=== PATIENT | male | born 1990 | race Caucasian/White ===

== ENCOUNTER 2019-01-08 14:16 | Inpatient (IN) ==
[2019-01-08 15:03] LABS: BASO# 0.04 X1000 (0.0-0.2); BASO% 0.6 % (0.0-0.8); HEMATOCRIT 43.8 % (42.0-52.0); HEMOGLOBIN 15.2 g/dL (14.0-18.0); IMM GRAN# 0.01 X1000 (0.0-0.04); IMM GRAN% 0.1 % (0.0-0.5); LYMPH# 1.05 X1000 (1.2-3.4); LYMPH% 14.5 % (20.5-51.1); MCH 28.5 PG (27-31); MCHC 34.7 g/dL (33-37); MONO# 0.77 X1000 (0.11-0.59); MONO% 10.6 % (1.7-9.3); MPV 9.9 FL (7.4-10.4); NEUT# 5.39 X1000 (1.4-6.5); NEUT% 74.2 % (42.2-75.2); PLT 371 X1000 (130-400); RBC 5.34 XMIL (4.7-6.1); RDW 12.7 % (11.5-14.5); WBC 7.26 X1000 (4.8-10.8)
--- NOTE | 2019-01-08 15:25 | EKG Report ---
Test Performed on : 01/08/2019 3:19:30 PM Test Reason : overdose Blood Pressure : / mmHG Vent. Rate : 134 BPM Atrial Rate : 134 BPM P-R Int : 152 ms QRS Dur : 082 ms QT Int : 286 ms P-R-T Axes : 063 047 008 degrees QTc Int : 427 ms Sinus tachycardia. Nonspecific T wave abnormality Abnormal ECG No previous ECGs available Unconfirmed Result
[2019-01-08 15:26] LABS: AGAP 20; ALBUMIN 4.9 g/dL (3.5-5.0); ALKALINE PHOSPHATASE 92 U/L (32-122); BUN 10 mg/dL (8-22); CALCIUM 8.8 mg/dL (8.8-10.2); CHLORIDE 97 mmol/L (98-107); COSMO 274; ESTIMATED GFR > 60; GLUCOSE 126 mg/dL (70-104); GOT 35 U/L (10-34); GPT 21 U/L (10-44); POTASSIUM 3.8 mmol/L (3.5-5.1); SODIUM 137 mmol/L (136-145); TCO2 21 mmol/L (25-35); TOTAL PROTEIN 7.6 g/dL (6.3-8.3)
--- NOTE | 2019-01-08 16:07 | PROVIDER DOCUMENTATION ---
This chart was entered by Fang Ramey Scribe, acting as scribe for Miguel Bee MD. [id number] Abuse/Overdose - General Source: patient, EMS - History of Present Illness-Drug/Alcohol This episode of drinking or use began:: last night Severity: reports: moderate Situational problems related to:: reports: N/A Psychiatric Complaints: reports: denies symptoms Associated Symptoms: reports: denies symptoms Any injuries associated with this episode of intoxication?: No Similar Symptoms Previously?: No Recently seen or treated by another doctor?: No - Substance Abuse Substance Use: reports: alcohol - Alcohol Abuse Usually drinks:: occasionally Other alcohols?: reports: N/A - Detox/Hospitalizations Previous detox/rehab admissions?: No Currently enrolled in a Methadone Program?: No <Miguel Bee - Last Filed: 01/08/19 18:51> <Baldev Ricci - Last Filed: 01/08/19 22:03> - General Chief Complaint: Intoxicated Stated Complaint: UNRESPONSIVE Time Seen by Provider: 01/08/19 14:52 Allergies/Adverse Reactions: Allergies Allergy/AdvReac Type Severity Reaction Status Date / Time No Known Allergies Allergy Verified 01/08/19 19:35 - History of Present Illness-Drug/Alcohol Nature of Presenting Problem: 28 y/o male presents to ED with intoxication onset last night. Pt reports he was binge-drinking vodka. EMS states they gave narcan en route to ED. Pt is alert and oriented. (Miguel Bee) Review of Systems - Adult - REVIEW OF SYSTEMS - ADULT Constitutional: reports: other (intoxicated). denies: chills, fever Eyes: reports: no symptoms reported Ears, Nose, Mouth & Throat: reports: no symptoms reported Cardiovascular: denies: chest pain, palpitations Respiratory: denies: cough, shortness of breath Gastrointestinal: denies: abdominal pain, diarrhea, nausea, vomiting Genitourinary: reports: no symptoms reported Musculoskeletal: denies: back pain, joint pain Integumentary: reports: no symptoms reported Neurological: denies: dizziness/vertigo, seizure Psychiatric: reports: no symptoms reported Endocrine: reports: no symptoms reported Hematologic/Lymphatic: reports: no symptoms reported Allergic/Immunologic: reports: no symptoms reported All Other Systems: Reviewed and Negative <Miguel Bee - Last Filed: 01/08/19 18:51> Past History - Adult - PAST MEDICAL HISTORY-ADULT Review of Records: reports: Old Records Reviewed, Nursing Assessment Review, Medications Reviewed Major Childhood Illnesses: reports: denies history - PRIOR SURGERIES/PROCEDURES Surgical/Procedure History: reports: none - IMMUNIZATION STATUS Childhood Immunizations: See Nurse Assessment Flu Vaccine: See Nurse Assessment - FAMILY HISTORY Family History: reviewed, not pertinent - SOCIAL HISTORY Smoking: non-smoker Substance Use: none/never Alcohol Use Frequency: occasionally Living Situation: family <Miguel Bee - Last Filed: 01/08/19 18:51> Physical Exam-General - PHYSICAL EXAM-ADULT Exam Limited by: intoxicated Initial Vital Signs Reviewed: Yes - CONSTITUTIONAL General Appearance: appears well, alert, no apparent distress, slow to respond, other (intoxicated) - EYES Eyes: PERRL/EOMI, pink conjunctivae - HEAD, EARS, NOSE, MOUTH & THROAT HENMT: normocephalic/atraumatic, moist mucous membranes, normal ENT inspection - NECK Neck: full range of motion - RESPIRATORY Respiratory: lungs clear, normal breath sounds - CARDIOVASCULAR Cardiovascular: tachycardia - MUSCULOSKELETAL Back Exam: normal inspection Extremity: normal range of motion - SKIN Integumentary: normal color, warm/dry - NEUROLOGIC Neurologic: other (slow to respond; intoxicated) - PSYCHIATRIC Psych/Mental Status: normal mood/affect, normal thought content, normal thought process, oriented x 3, other (slow to respond; intoxicated) <Miguel Bee - Last Filed: 01/08/19 18:51> Progress - PLAN OF CARE/RESULTS Result Diagrams: 01/08/19 14:15 01/08/19 14:15 - EKG 1 Time of EKG reading by physician:: 15:19 EKG Read and Signed by:: Miguel Bee EKG Interpretation (*Must complete 3 of following elements*): Abnormal Rate: 134 Rhythm: Sinus tach [place]: normal QRS: normal ID Interval: normal ST Wave: non-specific ST changes <Miguel Bee - Last Filed: 01/08/19 18:51> - PLAN OF CARE/RESULTS Result Diagrams: 01/08/19 14:15 01/08/19 14:15 - REASSESSMENT Reassessment #1 Time Reassessed: 19:05 Reassessment Comment: patient is alert but heart rate is up to 150,patient rep orts h/o DT's, Reassessment #2 Time Reassessed: 22:00 Status: unchanged Reassessment Comment: continues to be tachycardic despite ativan - CONSULTS/PCP/HOSPITALIST Notification #1 *Consult/PCP/Hospitalist*: Dr. Peck, hospitalist Time Discussed: 22:00 Consult Disposition: Admit <Baldev Ricci - Last Filed: 01/08/19 22:03> - PLAN OF CARE/RESULTS Progress/Plan/Lab Results: Vital Signs - 8 hr 01/08/19 14:13 01/08/19 15:44 01/08/19 17:09 Temperature 98.0 F 98.9 F Pulse Rate 136 H 137 H 126 H Respiratory Rate 17 18 22 Blood Pressure 165/107 162/104 151/87 O2 Sat by Pulse Oximetry 98 96 97 01/08/19 18:18 01/08/19 19:37 01/08/19 21:20 Temperature Pulse Rate 150 H 144 H 126 H Respiratory Rate 18 15 22 Blood Pressure 149/87 149/87 144/81 O2 Sat by Pulse Oximetry 94 L 98 96 Laboratory Results - last 24 hr 01/08/19 01/08/19 01/08/19 14:15 14:15 14:15 WBC 7.26 RBC 5.34 Hgb 15.2 Hct 43.8 MCV 82.0 MCH 28.5 MCHC 34.7 RDW Std Deviation 12.7 Plt Count 371 MPV 9.9 Immature Gran % (Auto) 0.1 Neut % (Auto) 74.2 Lymph % (Auto) 14.5 L Ritchie % (Auto) 10.6 H Eos % (Auto) 0.0 Baso % (Auto) 0.6 Immature Gran # (Auto) 0.01 Neut # (Auto) 5.39 Lymph # (Auto) 1.05 L Ritchie # (Auto) 0.77 H Eos # (Auto) 0.00 Baso # (Auto) 0.04 Sodium 137 Potassium 3.8 Chloride 97 L Carbon Dioxide 21 L Anion Gap 20 BUN 10 Creatinine 1.0 Estimated GFR/1.73 m2 > 60 BUN/Creatinine Ratio 10 Glucose 126 H POC Glucose Calculated Osmolality 274 Calcium 8.8 Total Bilirubin 0.60 AST 35 H ALT 21 Alkaline Phosphatase 92 Total Protein 7.6 Albumin 4.9 Globulin 3.0 Albumin/Globulin Ratio 2.0 Urine Opiates Screen Ur Oxycodone Screen Urine Methadone Screen U Propoxyphene Qual Ur Barbituates Screen Ur Tricyclics Screen Ur Phencyclidine Scrn Ur Amphetamines Screen U Methamphetamines Scrn U Benzodiazepines Scrn Urine Cocaine Screen U Cannabinoids Screen Plasma/Serum Ethyl Alc 460 H* 01/08/19 01/08/19 01/08/19 14:17 14:27 19:22 WBC RBC Hgb Hct MCV MCH MCHC RDW Std Deviation Plt Count MPV Immature Gran % (Auto) Neut % (Auto) Lymph % (Auto) Ritchie % (Auto) Eos % (Auto) Baso % (Auto) Immature Gran # (Auto) Neut # (Auto) Lymph # (Auto) Ritchie # (Auto) Eos # (Auto) Baso # (Auto) Sodium Potassium Chloride Carbon Dioxide Anion Gap BUN Creatinine Estimated GFR/1.73 m2 BUN/Creatinine Ratio Glucose POC Glucose 117 H Calculated Osmolality Calcium Total Bilirubin AST ALT Alkaline Phosphatase Total Protein Albumin Globulin Albumin/Globulin Ratio Urine Opiates Screen NONE DETECTED Ur Oxycodone Screen NONE DETECTED Urine Methadone Screen NONE DETECTED U Propoxyphene Qual NONE DETECTED Ur Barbituates Screen NONE DETECTED Ur Tricyclics Screen NONE DETECTED Ur Phencyclidine Scrn NONE DETECTED Ur Amphetamines Screen NONE DETECTED U Methamphetamines Scrn NONE DETECTED U Benzodiazepines Scrn NONE DETECTED Urine Cocaine Screen NONE DETECTED U Cannabinoids Screen NONE DETECTED Plasma/Serum Ethyl Alc 323 H Orders Category Date Time Status ALCOHOL BLOOD Stat Lab 01/08/19 14:15 Completed ALCOHOL BLOOD Stat Lab 01/08/19 19:22 Completed CBC WITH ELECTRONIC DIFF [HEME] Stat Lab 01/08/19 14:15 Completed COMPREHENSIVE METABOLIC PANEL [CHEM] Stat Lab 01/08/19 14:15 Completed [address]INE DRUG SCREEN [address] Stat Lab 01/08/19 14:27 Completed 0.9% Sodium Chloride Inj [Ns] 1,000 ml Med 01/08/19 19:52 Discontinued IV 999 mls/hr Lorazepam [Ativan] Med 01/08/19 19:05 Discontinued 1 mg IV NOW ONE Thiamine 100 mg Med 01/08/19 19:00 Discontinued 0.9% Sodium Chloride Inj [Ns] 50 ml IV NOW EKG [EKG] Stat Ther 01/08/19 14:53 Draft ordered IV thiamine, IV ativan, UDS- to further evaluated and treat. (Baldev Ricci) Departure <Miguel Bee - Last Filed: 01/08/19 18:51> - Departure Date of Disposition Decision: 01/08/19 Time of Disposition Decision: 22:01 Certified Medical Emergency: Emergent - Critical Care Note This patient required my direct & personal management of CC.: No <Baldev Ricci - Last Filed: 01/08/19 22:03> - Departure DIAGNOSIS: Tachycardia Alcohol poisoning Qualifiers: Encounter type: initial encounter Injury intent: accidental or unintentional Qualified Code(s): T51.91XA - Toxic effect of unspecified alcohol, accidental (unintentional), initial encounter Disposition: ADMITTED INPATIENT 09 Condition: Stable Referrals and Follow-Ups: None,PCP [Primary Care Provider] - Attestation - Physician/ ROX Attestation Patient care was provided by Advanced Practice Provider:: No The physician spent face to face time with patient:: Yes Advanced Practice Provider documentation review:: Supervising physician onsite a nd consulted in the evaluation and care of this patient. The physician did have a face to face encounter with the patient. <Miguel Bee - Last Filed: 01/08/19 18:51> This chart was documented by the indicated scribe, (Fang Ramey, Eleno) and accurately reflects the services I performed and decisions made by me, Miguel Bee MD, as attested by the provider's signature.
[2019-01-08] MEDS ORDERED: THIAMINE 100 MG in NS 50 ML IV ONE (19:00)
[2019-01-08] MEDS ORDERED: ATIVAN IV ONE (19:05)
[2019-01-08 19:25] LABS: UR AMPHETAMINES QUAL NONE DETECTED (NONE DETECT); UR BARBITUATES QUAL NONE DETECTED (NONE DETECT); UR BENZODIAZEPIN QUAL NONE DETECTED (NONE DETECT); UR CANNABINOIDS QUAL NONE DETECTED (NONE DETECT); UR COCAINE QUAL NONE DETECTED (NONE DETECT); UR METHADONE QUAL NONE DETECTED (NONE DETECT); UR METHAMPHETAMINE QUAL NONE DETECTED (NONE DETECT); UR OPIATES QUAL NONE DETECTED (NONE DETECT); UR OXYCODONE QUAL NONE DETECTED (NONE DETECT); UR PCP QUAL NONE DETECTED (NONE DETECT); UR PROPOXYPHENE QUAL NONE DETECTED (NONE DETECT); UR TCA QUAL NONE DETECTED (NONE DETECT)
[2019-01-08] MEDS ORDERED: NS 1,000 ML IV ONE ×2 (19:52→22:03)
[2019-01-08] MEDS ORDERED: ATIVAN IV PRN (22:08)
[2019-01-08] MEDS: LIBRIUM PO SCH (22:37)
[2019-01-09] MEDS: LIBRIUM PO SCH ×4 (02:16→20:50)
[2019-01-09 08:56] LABS: AGAP 15; BUN 10 mg/dL (8-22); CHLORIDE 104 mmol/L (98-107); COSMO 281; ESTIMATED GFR > 60; GLUCOSE 85 mg/dL (70-104); MAGNESIUM 1.6 mg/dL (1.5-2.7); POTASSIUM 3.8 mmol/L (3.5-5.1); SODIUM 142 mmol/L (136-145); TCO2 23 mmol/L (25-35)
[2019-01-09] MEDS ORDERED: M.V.I.-12 10 ML, FOLIC ACID 1 MG, MAGNESIUM SULFATE 1 GM, THIAMINE 100 MG in NS 1,000 ML IV ONE (09:00)
[2019-01-09] MEDS ORDERED: TYLENOL PO PRN (09:29)
[2019-01-09] MEDS ORDERED: ZOFRAN IV PRN (09:29)
[2019-01-09] MEDS: PRILOSEC PO SCH (09:50)
[2019-01-09] MEDS: TOPROL XL PO SCH (13:32)
[2019-01-09] MEDS: NS 1,000 ML IV SCH ×3 (13:33→18:44)
--- NOTE | 2019-01-09 15:13 | HISTORY AND PHYSICAL ---
DATE OF HISTORY AND PHYSICAL: 01/09/2019 PRIMARY CARE PROVIDER: No one. CHIEF COMPLAINT: He called the escrow secretary on himself before he passed out at the wheel secondary to alcohol intoxication. HISTORY OF PRESENT ILLNESS: Mr. Baldev Apodaca is a 28-year-old male with a medical history of binge drinking vodka, he also has a history of hypertension and possible depression. States he might can go a week or 2 without drinking alcohol but primarily his go to beverage choice is vodka. He drinks anywhere from a pint or more in a week and this past week he had 3 pints vodka and 6 additional small 50 mL bottles of vodka. His alcohol intoxication level was 460, had dropped down to 323 last night and was down to 0 today. Apparently he had a DUI and blew an alcohol level of 0.385 in the past and instead of going to half-way he did a program where he had to blow into a Smart Start device enable to start his car so he could drive and apparently he broke it so he could drive. He states he is going [place] the [place] unsure really why he was intending to go there intoxicated but he parked felt like he was going to pass out, called 911 and then proceeded to pass out. When they arrived it was unclear if it was just alcohol, they did give him Narcan, apparently he has a drug screen that is negative for any kind of narcotics and started slowly waking up throughout the day yesterday. He was admitted due to the fact that he was tachycardic despite waking up and getting IV fluids. Now heart rate is back down to normal range in the 90s but he still needs some fluid he has no fluids running and he was NPO so got him a diet and started him on some IV fluids. On further questioning him upon his goals for the future he states he really wants to go to rehab. He understands that he could be legally in trouble secondary to breaking the Smart Start and driving intoxicated but his ultimate goal is to go to rehab. PAST MEDICAL HISTORY: 1. Hypertension. 2. Depression untreated. SURGICAL HISTORY: None. SOCIAL HISTORY: Less than a can of smokeless tobacco per day, denies cigarette, drinks vodka and tends to go 1 week long binges he might go about a week or 2 without binge drinking but usually he goes on week long binges. Denies any illicit drug use. Apparently lost his job about a week ago due to alcohol abuse. He does have 2 children. FAMILY HISTORY: Mother had alcoholism and diabetes, father had coronary artery disease at the age of 60 now has permanent pacemaker. ALLERGIES: No known drug allergies. HOME MEDICATIONS: Supposed to be on Cozaar 50 mg p.o. daily apparently takes only occasionally he says about every other day but the stepmother that is at the bedside states he has not seen a physician at least year and has not had a prescription at least year. REVIEW OF SYSTEMS: Fourteen point review of systems are complete and all are negative except for those mentioned above HPI. He does claim to be nauseated right now and hungry. PHYSICAL EXAMINATION: VITAL SIGNS: Temperature 98.8 degrees, heart rate 96, respiratory rate 18, blood pressure 153/90, O2 saturation 98% on room air. GENERAL: Mr. Baldev Apodaca is 28-year-old male he is in no acute distress able to answer questions appropriately. HEENT: Atraumatic, normocephalic. Pupils equal, round, reactive to light. Extraocular movements intact. Mucous membranes are dry. NECK: Trachea midline. CARDIOVASCULAR: S1, S2. Regular rate and rhythm. No rubs, gallops, murmurs. No lower extremity edema, +2 dorsalis and radial pulses, negative JVD or carotid bruits. PULMONARY: Clear to auscultation bilateral breath sounds. No accessory muscle use or work of breathing noted. GI: Soft, nontender, nondistended. Positive bowel sounds x4. EXTREMITIES: Moves all extremities equally, full range of motion. NEURO: A and O x3, follows commands, sensory is intact. SKIN: Warm, dry, intact. LABORATORY DATA: Yesterday white blood cells 7000, hemoglobin 15, hematocrit 43, platelet count 371,000. Repeat BMP for today sodium 142, potassium 3.8, BUN 10, creatinine is 1.0, glucose 85, calcium 9.0, magnesium 1.6. Yesterday liver enzymes total bilirubin 0.60, AST 35, ALT 21, albumin 4.9. Urine drug screen negative, alcohol screening at 2:15 yesterday his alcohol levels 460 then at 7:20 last night it was 323 then this morning 0840 is 0. IMAGING: None. Did have an EKG, EKG shows sinus tachycardia, rate 34, QTc 427. ASSESSMENT/PLAN: 1. Alcohol intoxication which is now resolved. Could be risk for withdrawals, he denies having any issues with withdrawals, never had seizures. He is on a Librium taper actually looks like is just scheduled 25 mg p.o. q.6 hours, Ativan 1 mg q.2 hours IV, do saline 75 mL an hour to help hydrate him and then he is going to get a banana bag today, will add him back a diet. 2. Hypertension and tachycardia, heart rate back down to the 90s hypertension he is about 140s up to 150s but it is stable, he does not necessarily take the medication that was prescribed to him a year ago he has no 1 he follows up with. 3. Questionable depression, family feels like he is depressed he says he is not that he drinks mostly out of boredom and as far as taking something to help with depression it sounds like he is not very compliant really with medication taking but he does want to have rehab. 4. Alcohol abuse history. He is requesting to have rehabilitation, he understands that there may be some consequences to breaking the Smart Start on his car and driving intoxicated but his ultimate goal is to go to rehab for alcohol abuse. 5. Tobacco abuse is smokeless, he uses less than a can per day. Cessation discussed. Dictated by ABIGAIL De La Garza for Nathaniel Peck MD cc: ABIGAIL De La Garza MD
--- NOTE | 2019-01-09 20:24 | HISTORY AND PHYSICAL ---
ADDENDUM: Baldev Burnette came in with an alcohol level of above 400, 460. He drinks about a pint a day. He has a very active drinker. According to the nurse, he had 3 pints of vodka and six 50 mL bottles of vodka. In any case he was drinking, persistently tachycardic and he was admitted for treatment. He does want help, so we are going to work on trying to give him help for outpatient counseling and detoxification. Currently he is on Librium and he seems to be fairly well controlled. We will continue a banana bag daily and follow. This was a [id number] encounter note with ABIGAIL De La Garza. cc: Nathaniel Peck MD
[2019-01-10 06:25] LABS: BASO# 0.03 X1000 (0.0-0.2); BASO% 0.6 % (0.0-0.8); EOS# 0.12 X1000 (0.0-0.7); EOS% 2.6 % (0.0-10.0); HEMATOCRIT 38.4 % (42.0-52.0); HEMOGLOBIN 12.8 g/dL (14.0-18.0); IMM GRAN# 0.01 X1000 (0.0-0.04); IMM GRAN% 0.2 % (0.0-0.5); LYMPH# 1.27 X1000 (1.2-3.4); LYMPH% 27.5 % (20.5-51.1); MCH 28.3 PG (27-31); MCHC 33.3 g/dL (33-37); MONO# 0.43 X1000 (0.11-0.59); MONO% 9.3 % (1.7-9.3); MPV 9.7 FL (7.4-10.4); NEUT# 2.76 X1000 (1.4-6.5); NEUT% 59.8 % (42.2-75.2); PLT 212 X1000 (130-400); RBC 4.52 XMIL (4.7-6.1); RDW 12.6 % (11.5-14.5); WBC 4.62 X1000 (4.8-10.8)
[2019-01-10] MEDS: PRILOSEC PO SCH (06:25)
[2019-01-10] MEDS: NS 1,000 ML IV SCH (06:26)
[2019-01-10] MEDS: LIBRIUM PO SCH ×3 (06:26→20:41)
[2019-01-10 06:48] LABS: AGAP 9; ALBUMIN 4.2 g/dL (3.5-5.0); ALKALINE PHOSPHATASE 71 U/L (32-122); BUN 8 mg/dL (8-22); CALCIUM 8.9 mg/dL (8.8-10.2); CHLORIDE 105 mmol/L (98-107); COSMO 275; CREATININE 0.9 mg/dL (0.7-1.2); ESTIMATED GFR > 60; GLUCOSE 90 mg/dL (70-104); GOT 24 U/L (10-34); GPT 15 U/L (10-44); MAGNESIUM 1.9 mg/dL (1.5-2.7); POTASSIUM 3.9 mmol/L (3.5-5.1); SODIUM 139 mmol/L (136-145); TCO2 25 mmol/L (25-35); TOTAL PROTEIN 6.2 g/dL (6.3-8.3)
[2019-01-10] MEDS: TOPROL XL PO SCH (08:22)
[2019-01-10] MEDS: POTASSIUM CHLORIDE 20 MEQ, MAGNESIUM SULFATE 2 GM, THIAMINE 100 MG, FOLIC ACID 1 MG, M.... IV SCH ×6 (09:35)
[2019-01-10] MEDS ORDERED: NS 1,000 ML IV SCH (12:32)
--- NOTE | 2019-01-10 14:52 | PROGRESS NOTE ---
DATE: 01/10/2019 SUBJECTIVE: The patient has no major complaints. OBJECTIVE: Vital Signs: Blood pressure 149/92, heart rate 90, respiratory rate 18, temperature 97.8 degrees, saturating 100% on room air. Cardiovascular: Regular rate and rhythm. Pulmonary: Bilateral breath sounds. Clear to auscultation. GI: Soft, nontender, nondistended. Bowel sounds are positive. LABORATORY DATA: Basic was okay. Total bilirubin up a little bit at 1.4. Hemoglobin and hematocrit 12 and 38 likley due to a little bit of dilution. ASSESSMENT: 1. Alcohol withdrawal syndrome. He is doing okay on the Librium taper. He is much improved, a lot better than I would expect him to be, but he seems to be doing okay. Now, he is not a daily drinker. He came in at fairly toxic levels, so his withdrawal may not be as bad. Of course, long-term that will be a concern. 2. Hypertension and tachycardia. That has improved. He is on Toprol. Seems to be doing okay. 3. Disposition. I anticipate discharge in the next 1 to 2 days. His family has arranged for an outpatient long-term detox program. He has no insurance. I think it is in the [facility]. I think it would behoove the patient to be here just 1 more day until he can be at least discharged tomorrow at the discretion of Dr. Noble, who has specialty experience with substance abuse patients. cc: Nathaniel Peck MD MTDD
[2019-01-11] MEDS: PRILOSEC PO SCH (06:04)
[2019-01-11] MEDS: LIBRIUM PO SCH ×3 (06:04→17:42)
[2019-01-11 07:10] LABS: AGAP 9; BUN 10 mg/dL (8-22); CALCIUM 8.9 mg/dL (8.8-10.2); CHLORIDE 110 mmol/L (98-107); COSMO 287; CREATININE 0.9 mg/dL (0.7-1.2); ESTIMATED GFR > 60; GLUCOSE 88 mg/dL (70-104); POTASSIUM 4.1 mmol/L (3.5-5.1); SODIUM 145 mmol/L (136-145); TCO2 25 mmol/L (25-35)
[2019-01-11] MEDS: POTASSIUM CHLORIDE 20 MEQ, MAGNESIUM SULFATE 2 GM, THIAMINE 100 MG, FOLIC ACID 1 MG, M.... IV SCH ×6 (09:52)
[2019-01-11] MEDS: TOPROL XL PO SCH (09:53)
[2019-01-12] MEDS: LIBRIUM PO SCH ×4 (00:14→17:55)
--- NOTE | 2019-01-12 05:08 | PROGRESS NOTE ---
DATE: 01/11/2019 SUBJECTIVE: Patient overall notes he is doing a lot better. He is having no tremors. No myalgias. No fevers or chills. Overall symptoms have improved. OBJECTIVE: Vital Signs: Temperature 97.7, pulse 67, respiratory 18, and BP 138/81. General: Patient is awake and currently in no distress. HEENT: Normocephalic. Neck: Supple. Cardiovascular: Regular rate. Chest: Clear and nonlabored. Abdomen: Soft. Nondistended. Extremities: Moves all extremities. Neurologic: No changes. ASSESSMENT: 1. Acute alcohol withdrawal syndrome currently much improved. He is on Librium 50 q. 8. We will decrease to Librium 25 q.6 today and hopefully 25 t.i.d. tomorrow, and we will follow. 2. Hypertension stable. 3. Tachycardia resolved on Toprol. PLAN: Overall, patient has improved. Withdrawal symptoms continue to improve. Discussed with patient naltrexone. We will decrease him to Librium 25 q.6h today and hopefully 25 t.i.d. tomorrow. He can discharge to rehab when bed is available. cc: Juan Noble MD
[2019-01-12] MEDS: PRILOSEC PO SCH (06:25)
[2019-01-12] MEDS: TOPROL XL PO SCH (09:45)
--- NOTE | 2019-01-12 23:49 | PROGRESS NOTE ---
DATE: 01/12/2019 SUBJECTIVE: The patient notes that he is feeling a lot better. Denies any fevers or chills. He states that he may have a bed Friday or at rehab. OBJECTIVE: Temperature 97 degrees, pulse 62, respiratory rate 18, BP 119/67.General: The patient is awake. He is in no distress. HEENT: Normocephalic. Neck supple. Cardiovascular: Regular rate. No murmurs. Chest clear and nonlabored. Abdomen soft. Extremities: Moves all extremities. ASSESSMENT: 1. Acute alcohol withdrawal syndrome. 2. Myalgias. 3. Tremors. 4. Paresthesias. 5. Hypertension. 6. Tachycardia. PLAN: We will continue the patient in the hospital. We will wean his Librium to 25 t.i.d. today if he tolerates. He certainly take 25 twice daily tomorrow and then stop. We will continue counseling. Further orders as needed. cc: Juan Noble MD
[2019-01-13] MEDS: PRILOSEC PO SCH ×2 (05:45→06:19)
[2019-01-13 08:07] VITALS: BP 151/99
--- NOTE | 2019-01-14 07:22 | DISCHARGE SUMMARY ---
ADMISSION DATE: 01/08/2019 DISCHARGE DATE: 01/13/2019 DIAGNOSES: 1. Acute alcohol withdrawal syndrome. 2. Myalgias. 3. Tremors. 4. Paresthesias. 5. Hypertension. 6. Tachycardia. DIAGNOSTICS: EKG revealed [*]. HOSPITAL COURSE: Mr. Burnette presented to the emergency room after becoming unresponsive after binge drinking vodka. He was found to have a blood alcohol of 460. He was given a Librium taper, along with Ativan and hydration. He did receive a banana bag. Thankfully, he has had no complications. Today, he denies any fevers or chills. No further myalgias. He is having no tremors. He was tachycardic, which resolved after Toprol, with heart rates in the 70s to 90s since 01/10/2019. Thankfully, he was accepted to go to rehab for alcohol treatment at the [facility] in [place], and is able to be discharged. DISCHARGE MEDICATIONS: Cozaar 50 mg 1 p.o. daily. DISCHARGE VITAL SIGNS: Blood pressure is 150/90, with a heart rate of 78, respirations 20, temperature 97.3 degrees oral, with room air saturations 98 to 100. DISCHARGE PHYSICAL EXAMINATION: Cardiovascular: Regular rate and rhythm. S1 and S2 appreciated. Extremities: He has no lower extremity edema. Calves are nontender bilaterally, with peripheral pulses palpable x4 extremities. Pulmonary: Breath sounds are clear. No increased work of breathing noted. Chest rise and fall is symmetric with respiration. Chest wall is nontender to palpation. Gastrointestinal: Abdomen is soft, nontender, nondistended with bowel sounds in all 4 quadrants. Neurologic: He is alert and oriented x3. FOLLOWUP: The patient is being discharged to his parents, going to rehab at [facility] in [place]. Followup will be per their recommendation and arrangements after discharge from rehab. TIME SPENT: This is a greater than 30-minute discharge. Dictated by ABIGAIL Ford for Juan Noble MD cc: ABIGAIL Ford MD
--- NOTE | 2019-01-14 07:36 | DISCHARGE SUMMARY ---
ADMISSION DATE: 01/08/2019 DISCHARGE DATE: 01/13/2019 DISCHARGE DIAGNOSES: 1. Alcoholic hallucinosis, resolved. 2. Paresthesias. 3. Tremors, resolved. 4. Paroxysmal sweating with frequent changes in temperature. 5. Alcohol abuse, withdrawal, and stabilization. CONSULTATIONS: None. PROCEDURES: None. BRIEF HOSPITAL COURSE: The patient is a 28-year-old male who presented to the hospital severely intoxicated. He was placed in the ICU where we continued to wean him off his alcohol. Then placed on a Librium taper and is currently weaned off of that as well. DISPOSITION: Overall, the patient has done very well. We will continue to follow. He will follow up outpatient once he is finished with his inpatient treatment and counseling. cc: Juan Noble MD
== END 2019-01-13 09:21 | DRG 897 ==
LOC: P.ED 14:16 → P.MEDSURG 22:47 → SUATTDRO 22:47
PROVIDERS: ATTEND Family Medicine
CPT/HCPCS: 80048; 80053; 80104; 80301; 80305; 80307; 80320; 82055; 82948; 83735; 84443; 85025; 93005; 96361; 96365; 96375; 99285; A9270; G0431; G0434; G0477; G0480; G6040; J2060; J3411; J3475; J3480; J7030; XXXXX